=== PATIENT | female | born 1975 | race Two or more races ===

== ENCOUNTER → 2025-01-09 | Outpatient (CLI) | payer MEDICAID, SELFPAY ==
--- NOTE | 2025-01-09 10:15 | XR_ITS ---
Examination: Screening digital mammography, bilateral Computer aided detection 3-D breast Tomosynthesis, bilateral Date and time of exam: January 09, 2025 0947 hours No priors Indication: Screening Technique: Nonmagnified MLO, CC views of the breasts to been obtained, reconstructed from 3-D Tomosynthesis images. R2 computer aided detection program utilized for evaluation of suspicious masses and/or abnormal calcifications. 3-D Tomosynthesis images obtained. Findings: Scattered areas of fibroglandular density. Benign calcifications. 10 mm focal asymmetry nipple level right breast Impression: BI-RADS Category 0: Incomplete: Need additional imaging evaluation Recommend follow-up spot tomographic views of 10 mm focal asymmetry nipple level right breast as well as right breast sonography to complete the workup.
== END | disposition home or self-care (01) ==
PROVIDERS: Referring Provider Family Medicine; Visit Provider Family Medicine
DX: Z12.31 Encounter for screening mammogram for malignant neoplasm of breast (principal); N64.89 Other specified disorders of breast
CPT/HCPCS: 77063; 77067

== ENCOUNTER → 2025-04-10 | Outpatient (CLI) | payer MEDICAID, SELFPAY ==
--- NOTE | 2025-04-10 08:30 | XR_ITS ---
Examination: Retroperitoneal ultrasound, complete Technique: Multiple high resolution grayscale images of the retroperitoneum obtained, including kidneys and bladder. Exam date and time:April 10, 2025 0908 hours INDICATIONS: Onset right-sided flank pain beginning 7 weeks ago FINDINGS: Right kidney 11.5 cm renal cortex 1.8 cm Mild hydronephrosis 16 mm upper pole calculus 14 mm lower pole calculus Left kidney 11.9 cm cortex 2.3 cm Midpole cyst 18 mm Lower pole calculus 22 mm Moderate bilateral renal parenchymal scar formation No bladder mass Bladder prevoid volume 966 cc postvoid volume 25 cc IMPRESSION: Bilateral renal calculi Mild right hydronephrosis, consider CT scan abdomen pelvis without contrast follow-up
--- NOTE | 2025-04-10 09:00 | XR_ITS ---
Examination: Breast ultrasound, unilateral, right complete Date and time of exam: April 10, 2025 0922 hours INDICATIONS: Mammogram January 09, 2025 10 mm focal asymmetry nipple level right breast Technique: Real-time bose scale ultrasonographic imaging performed right breast including all 4 quadrants as well as nipple retroareolar and axillary region. Findings: 1:00 cyst 9 x 8 mm 10:00 circumscribed nodule 6 x 5 mm IMPRESSION: BI-RADS Category 3: Probably benign findings One additional 6 month right breast sonogram follow-up is needed to document stability of 10:00 nodule described above
--- NOTE | 2025-04-10 09:30 | XR_ITS ---
Examination: Diagnostic digital mammography, unilateral, right Computer aided detection 3-D breast Tomosynthesis, unilateral Date and time of exam: April 10, 2025 0941 hours INDICATIONS: Mammogram January 09, 2025 10 mm focal asymmetry nipple level right breast CC view Technique: Nonmagnified MLO, CC views of the right breast have been obtained, reconstructed from 3-D Tomosynthesis images. R2 computer aided detection program utilized for evaluation of suspicious masses and/or abnormal calcifications. 3-D Tomosynthesis images obtained. Findings: Scattered areas of fibroglandular density. Nodule remains retroareolar region right breast on the spot compression view partially circumscribed, 6 mm Impression: BI-RADS category 3: Probably benign findings One additional 6 month right mammogram follow-up is needed
== END | disposition home or self-care (01) ==
PROVIDERS: PCP Family Medicine; Referring Provider Family Medicine; Visit Provider Family Medicine
DX: R92.331 Mammographic heterogeneous density, right breast (principal); N20.0 Calculus of kidney; N13.30 Unspecified hydronephrosis; N63.11 Unspecified lump in the right breast, upper outer quadrant
CPT/HCPCS: 76641; 76770; 77061; 77065; G0279

== ENCOUNTER → 2025-06-12 | Outpatient (CLI) | payer MEDICAID, SELFPAY ==
[2025-06-10 15:58] LABS: HCG Qualitative,Urine Negative
--- NOTE | 2025-06-12 14:00 | XR_ITS ---
Examination: CT abdomen and pelvis without contrast. Coronal 3-D reconstructions. Sagittal 2-D reconstructions. Date and time of exam: June 12, 2025, 1449 hours INDICATIONS: Right-sided abdominal and flank pain 2 months, history kidney stones CTDI: vol (mGy): 13.8 DLP: (mGycm): 781 Technique: Axial images of the abdomen have been obtained, 3 mm slice thickness Intravenous contrast material has not been administered. Low dose protocols were performed. One or more of the following dose reduction techniques were used; automated exposure control, adjustment of the mA and/or KV according to patient size, use of iterative reconstruction technique. Findings: Fatty infiltration throughout the liver no focal liver or splenic lesions No gallstones No pancreatic or adrenal mass Bilateral renal calculi including staghorn type calculus left kidney 12 mm and posterior staghorn type calculus in a calyx right kidney 13 mm No hydronephrosis or ureteral calculi No bowel obstruction Normal appendix No pelvic mass Contracted urinary bladder with wall thickening IMPRESSION: Bilateral multiple renal calculi, no hydronephrosis or ureteral calculi Urinary bladder is contracted, consider urinary bladder sonography
== END | disposition home or self-care (01) ==
PROVIDERS: PCP Family Medicine; Referring Provider Family Medicine; Visit Provider Family Medicine
DX: N20.0 Calculus of kidney (principal); N32.89 Other specified disorders of bladder; Z32.00 Encounter for pregnancy test, result unknown
CPT/HCPCS: 74176; 81025